=== PATIENT | female | born 1980 | race Caucasian/White ===

== ENCOUNTER 2016-09-14 15:09 | Emergency (ER) | payer OTHER ==
[2016-09-14 15:34] VITALS: BP 122/114; TEMP 98.2; O2SAT 98
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
== END 2016-09-14 16:42 | disposition home or self-care (01) ==
LOC: ER 15:09
DX: S20.219A Contusion of unspecified front wall of thorax, initial encounter (principal); S40.022A Contusion of left upper arm, initial encounter; V53.5XXA Driver of pick-up truck or van injured in collision with car, pick-up truck or van in traffic accident, initial encounter; Y92.410 Unspecified street and highway as the place of occurrence of the external cause

== ENCOUNTER 2016-10-10 22:46 | Emergency (ER) | payer OTHER ==
[2016-10-10 23:11] VITALS: TEMP 99.4
[2016-10-10] MEDS ORDERED: LORazepam 0.5 MG TAB PO ONE (23:42)
[2016-10-10] MEDS ORDERED: LIDOCAINE VIS-MYLANTA 30 ML UD PO ONE (23:42)
--- NOTE | 2016-10-10 23:53 | RAD ---
EXAM DESCRIPTION: Chest,1 View CLINICAL HISTORY: palpitations COMPARISON: April 27, 2013 FINDINGS: Cardiac silhouette is within normal limits. EKG leads project over the chest. There is no focal parenchymal or pleural disease. There is no acute osseous process visualized. IMPRESSION: No evidence of acute cardiopulmonary disease. Electronically signed by: Harjit Butcher MD 10/10/2016 11:53 PM CDT
--- NOTE | 2016-10-11 01:00 | ED.PDOC ---
History of Present Illness - General Chief Complaint: Cardiovascular Problem Stated Complaint: shortness of breath, tingling arm, chest pain Time Seen by Provider: 10/10/16 23:12 Source: patient Exam Limitations: no limitations - History of Present Illness Initial Comments: Patient presents with mild chest pain and palpitations for one month. She is worried about "heart" problems. She denies shortness of breath at this time but says she gets it sometimes. No cardiac history. No hx of GERD. No other complaints. Timing/Duration: other - one month Severity: mild Improving Factors: nothing Worsening Factors: nothing Allergies/Adverse Reactions: Allergies NO KNOWN ALLERGY Allergy (Verified 09/14/16 15:34) Home Medications: Ambulatory Orders NK [NK] 09/14/16 Review of Systems - Review of Systems Constitutional: States: no symptoms reported EENTM: States: no symptoms reported Respiratory: States: see HPI Cardiology: States: see HPI Gastrointestinal/Abdominal: States: no symptoms reported Genitourinary: States: no symptoms reported Musculoskeletal: States: no symptoms reported Skin: States: no symptoms reported Neurological: States: no symptoms reported Endocrine: States: no symptoms reported Hematologic/Lymphatic: States: no symptoms reported Past Medical History (General) - Patient Medical History Hx Seizures: No Hx Stroke: No Hx Dementia: No Hx Asthma: No Hx of COPD: No Hx Cardiac Disorders: No Hx Congestive Heart Failure: No Hx Pacemaker: No Hx Hypertension: No Hx Thyroid Disease: No Hx Diabetes: No Hx Gastroesophageal Reflux: No Hx Renal Disease: No Hx Cancer: No Hx of HIV: No Hx Hepatitis C: No Hx MRSA: No - Vaccination History Hx Tetanus, Diphtheria Vaccination: No Hx Influenza Vaccination: No Hx Pneumococcal Vaccination: No - Social History Hx Tobacco Use: Yes Hx Chewing Tobacco Use: No Hx Alcohol Use: No Hx Substance Use: No Hx Substance Use Treatment: No Hx Depression: No Hx Physical Abuse: No Hx Emotional Abuse: No Hx Suspected Abuse: No - Female History Patient : No Family Medical History - Family History Mother Family History: Unknown Physical Exam - Physical Exam General Appearance: Alert Ears, Nose, Throat: normal ENT inspection Neck: non-tender, full range of motion, supple Respiratory: lungs clear Cardiovascular/Chest: normal peripheral pulses, regular rate, rhythm Gastrointestinal/Abdominal: normal bowel sounds, non tender, soft Back Exam: normal inspection, no CVA tenderness Extremity: normal inspection Skin Exam: normal color Lymphatic: no adenopathy Progress - Progress Progress: 10/11/16 01:00 Cardiac enzymes negative. Normal CXR. EKG showed NSR with no ST changes nor T wave inversion. No LBBB. Patient's sx improved after a GI cocktail. She was given ativan 1 mg po to help with her associate anxiety. Laboratory Tests 10/10/16 10/10/16 10/10/16 23:23 23:23 23:23 WBC 9.6 RBC 4.79 Hgb 14.4 Hct 41.0 MCV 85.7 MCH 30.0 MCHC 35.0 RDW 13.7 Plt Count 212 MPV 8.3 Absolute Neuts (auto) 5.70 Absolute Lymphs (auto) 3.00 Absolute Monos (auto) 0.60 Absolute Eos (auto) 0.20 Absolute Basos (auto) 0.00 Neutrophils % 59.4 Lymphocytes % 31.3 Monocytes % 6.4 Eosinophils % 2.5 Basophils % 0.4 D-Dimer, Quantitative < 230 Sodium 139 Potassium 3.6 Chloride 107 Carbon Dioxide 24 Anion Gap 11.6 L BUN 15 Creatinine 0.75 BUN/Creatinine Ratio 20.0 Random Glucose 108 H Serum Osmolality 278.9 Calcium 9.3 Total Bilirubin 0.8 AST 20 ALT 19 Alkaline Phosphatase 71 Creatine Kinase 58 CK-MB (CK-2) 1.2 CK-MB (CK-2) % Not Reportable Troponin I < 0.02 Serum Total Protein 7.5 Albumin 4.2 Globulin 3.3 Albumin/Globulin Ratio 1.3 Departure - Departure Clinical Impression: Anxiety Disposition: Discharge to Home or Self Care Condition: Good Departure Forms: ED Discharge - Pt. Copy, Patient Portal Self Enrollment Diet: resume usual diet Activity: increase activity as tolerated Referrals: Juan Menon MD [Primary Care Provider] - 1-2 Weeks Home Medications: Ambulatory Orders NK [NK] 09/14/16 Additional Instructions: Follow up with your primary care physician next week. You may want to try Prilosec over the counter as directed on the box until you can see your physician.
[2016-10-11 01:24] VITALS: BP 133/74; O2SAT 97
== END 2016-10-11 01:30 | disposition home or self-care (01) ==
LOC: ER 22:46
DX: F41.9 Anxiety disorder, unspecified (principal); Z87.891 Personal history of nicotine dependence

== ENCOUNTER → 2016-10-22 | Outpatient (CLI) | payer OTHER | END | disposition home or self-care (01) | LOC: GMAM 17:38 | PROVIDERS: ATTEND Family Medicine | DX: R73.9 Hyperglycemia, unspecified (principal) ==

== ENCOUNTER → 2017-06-19 | Outpatient (CLI) | payer OTHER | LOC: GMA 20:44 | PROVIDERS: ATTEND Nurse Practitioner Family | DX: N30.00 Acute cystitis without hematuria (principal) ==

== ENCOUNTER 2017-07-11 22:11 | Observation (INO) | payer OTHER ==
--- NOTE | 2017-07-11 23:05 | ED.PDOC ---
History of Present Illness - General Chief Complaint: Fever Stated Complaint: Fever Time Seen by Provider: 07/11/17 23:04 Source: patient Exam Limitations: no limitations - History of Present Illness Initial Comments: Meghana Sue 37 y/o female stated that she had worsening bilateral flank pain this am;no n/v/pain with urination,no diarrhea ,no constipation,no blood in urine but had history of kidney stones in the past.Had developed fever tonight and decided to come to ER.Denies cough ,nasal congestion. Timing/Duration: 24 hours Severity: moderate Improving Factors: nothing Worsening Factors: nothing Associated Symptoms: denies symptoms Allergies/Adverse Reactions: Allergies NO KNOWN ALLERGY Allergy (Verified 07/11/17 22:53) Home Medications: Ambulatory Orders NK [NK] 09/14/16 Review of Systems - Review of Systems Constitutional: States: see HPI, fever EENTM: States: no symptoms reported Respiratory: States: no symptoms reported Cardiology: States: no symptoms reported Gastrointestinal/Abdominal: States: no symptoms reported Genitourinary: States: see HPI, dysuria Musculoskeletal: States: no symptoms reported Skin: States: no symptoms reported Neurological: States: no symptoms reported Past Medical History (General) - Patient Medical History Hx Seizures: No Hx Stroke: No Hx Dementia: No Hx Asthma: No Hx of COPD: No Hx Cardiac Disorders: No Hx Congestive Heart Failure: No Hx Pacemaker: No Hx Hypertension: No Hx Thyroid Disease: No Hx Diabetes: No Hx Gastroesophageal Reflux: No Hx Renal Disease: No Hx Cancer: No Hx of HIV: No Hx Hepatitis C: No Hx MRSA: No Surgical History: cholecystectomy, other - Vaccination History Hx Tetanus, Diphtheria Vaccination: Yes Hx Influenza Vaccination: No Hx Pneumococcal Vaccination: No Immunizations Up to Date: No - Patient did not receive flu vaccine - Social History Hx Tobacco Use: No Hx Chewing Tobacco Use: No Hx Alcohol Use: No Hx Substance Use: No Hx Substance Use Treatment: No Hx Depression: No Feels Threatened In Home Enviroment: No Feels Threatened In a Relationship: No Hx Physical Abuse: No Hx Emotional Abuse: No Hx Suspected Abuse: No - Female History Patient is a Female of Child Bearing Age (10 -59 yrs old): Yes Hx Last Menstrual Period: 06/25/17 Patient : No Family Medical History - Family History Mother Family History: Unknown Physical Exam - Physical Exam General Appearance: Alert, Comfortable Eye Exam: bilateral normal Ears, Nose, Throat: hearing grossly normal, normal ENT inspection, normal pharynx Neck: non-tender, full range of motion, supple Respiratory: lungs clear, normal breath sounds, no respiratory distress Cardiovascular/Chest: normal peripheral pulses, regular rate, rhythm, no murmur Peripheral Pulses: radial,right: 2+, radial,left: 2+ Gastrointestinal/Abdominal: normal bowel sounds, non tender, soft, no organomegaly Back Exam: no vertebral tenderness, CVA tenderness (R), CVA tenderness (L) Extremity: no pedal edema, no calf tenderness Neurologic: alert, normal mood/affect Skin Exam: normal color, warm/dry Progress - Progress Progress: 07/12/17 02:49 Vital Signs 07/11/17 07/11/17 22:53 23:01 Temperature 101.8 F H Pulse Rate [ 138 H 138 H Monitor] Respiratory 20 20 Rate Blood Pressure 145/92 [Left Arm] O2 Sat by Pulse 96 Oximetry - Results/Orders Results/Orders: Laboratory Tests 07/11/17 07/11/17 07/11/17 23:00 23:05 23:05 WBC 19.1 H RBC 5.05 Hgb 15.2 Hct 43.8 MCV 86.7 MCH 30.0 MCHC 34.6 RDW 13.3 Plt Count 193 MPV 8.3 Absolute Neuts (auto) 17.20 H Absolute Lymphs (auto) 0.90 L Absolute Monos (auto) 0.90 H Absolute Eos (auto) 0.10 Absolute Basos (auto) 0.00 Neutrophils % 90.2 H Lymphocytes % 4.6 L Monocytes % 4.6 Eosinophils % 0.4 L Basophils % 0.2 Sodium 138 Potassium 3.7 Chloride 106 Carbon Dioxide 20 L Anion Gap 15.7 BUN 9 Creatinine 0.60 BUN/Creatinine Ratio 15.0 Random Glucose 114 H Serum Osmolality 275.2 Lactic Acid Calcium 9.5 Total Bilirubin 2.2 H* AST 20 ALT 27 Alkaline Phosphatase 68 Serum Total Protein 7.8 Albumin 4.4 Globulin 3.4 Albumin/Globulin Ratio 1.3 Lipase Urine Color Yellow Urine Appearance Clear Urine pH 5.5 Ur Specific [place] 1.020 Urine Protein Negative Urine Glucose (UA) Negative Urine Ketones 15 H Urine Blood Moderate H Urine Nitrite Negative Urine Bilirubin Negative Urine Urobilinogen 0.2 Ur Leukocyte Esterase Negative Urine RBC 0-1 Urine WBC 0-1 Ur Epithelial Cells 1-3 Urine Bacteria Rare Urine Mucus Trace 07/11/17 07/11/17 23:05 23:05 WBC RBC Hgb Hct MCV MCH MCHC RDW Plt Count MPV Absolute Neuts (auto) Absolute Lymphs (auto) Absolute Monos (auto) Absolute Eos (auto) Absolute Basos (auto) Neutrophils % Lymphocytes % Monocytes % Eosinophils % Basophils % Sodium Potassium Chloride Carbon Dioxide Anion Gap BUN Creatinine BUN/Creatinine Ratio Random Glucose Serum Osmolality Lactic Acid 1.2 Calcium Total Bilirubin AST ALT Alkaline Phosphatase Serum Total Protein Albumin Globulin Albumin/Globulin Ratio Lipase 20 L Urine Color Urine Appearance Urine pH Ur Specific [place] Urine Protein Urine Glucose (UA) Urine Ketones Urine Blood Urine Nitrite Urine Bilirubin Urine Urobilinogen Ur Leukocyte Esterase Urine RBC Urine WBC Ur Epithelial Cells Urine Bacteria Urine Mucus - EKG/XRAY/CT XRAY: chest - no acute abnormalities CT Ordered: Yes - abd pelvis -no acute abnormalities;kidney stone Departure - Departure Clinical Impression: Fever in adult, Bilateral flank pain Time of Disposition: 02:50 Disposition: Admit Patient Condition: Good Departure Forms: Patient Portal Self Enrollment Referrals: Juan Menon MD [Primary Care Provider] - 1-2 Weeks Home Medications: Ambulatory Orders NK [NK] 09/14/16 Decision To Admit - Decistion To Admit Decision to Admit Reason: Admit from ER Decision to Admit Date: 07/12/17 - D/W Patricia GARCIA/Hospitalist Decision to Admit Time: 02:51
[2017-07-11] MEDS ORDERED: LACTATED RINGERS 1,000 ML IVS ONE (23:06)
[2017-07-12] MEDS ORDERED: MORPHINE SULFATE INJ 10 MG/ML VIAL IV ONE (00:42)
[2017-07-12] MEDS ORDERED: PROMETHAZINE HCL INJ 25 MG/ML VIAL IM ONE (00:43)
[2017-07-12] MEDS ORDERED: levoFLOXacin 500MG IV 500 MG in PREMIX BAG 1 BAG IVPB ONE (00:50)
[2017-07-12] MEDS ORDERED: levoFLOXacin 500MG IV 100 ML IVPB ONE (00:58)
--- NOTE | 2017-07-12 01:49 | RAD ---
EXAM: Two view chest. INDICATION: Fever. COMPARISON: Chest x-ray: 10/10/2016. FINDINGS: Cardiac silhouette: Unremarkable. Cecilia: Unremarkable. Lobar consolidation: None. Pleural effusion: None. Pneumothorax: None. Other: None. Bones: Unremarkable. Other: None. IMPRESSION: 1. No acute cardiopulmonary process. Electronically signed by: Yobany Nathan MD 07/12/2017 1:48 AM [facility] Workstation: [id number]
--- NOTE | 2017-07-12 02:08 | CT ---
Procedure: CT ABDOMEN PELVIS WITHOUT IV CONTRAST Exam Date: 07/12/2017 Ordering Provider: Keven Fox Clinical Indication: Right-sided abdominal pain Comparison: 01/13/2016 TECHNIQUE: 5 mm images were taken through the abdomen and pelvis without the administration of nonionic intravenous contrast material. Oral contrast was not administered. Coronal and sagittal reformatted images were generated. This exam was performed according to our departmental dose optimization program which includes use of automated exposure control, adjustment of the mA and/or kV according to patient size and/or use of iterative reconstruction technique. FINDINGS: Lower chest: Nonacute Abdomen: Liver and biliary system: Hepatomegaly. Hepatic steatosis. Prior cholecystectomy. Spleen: Unremarkable Pancreas: Unremarkable Adrenal glands: Unremarkable Kidneys: Punctate stones in the left kidney. No hydronephrosis in either kidney. Lymph nodes: Shotty nodes with adjacent haziness within the right mesentery. No lymphadenopathy by size criteria. Retroperitoneum, abdominal wall, peritoneal cavity: No ascites. No free intraperitoneal air. Vessels: No abdominal aortic aneurysm. Pelvis: Lymph nodes: No lymphadenopathy Bowel: No bowel obstruction. Appendix is within normal limits. No bowel wall thickening. Colonic diverticulosis without evidence of diverticulitis. Bladder: Unremarkable Pelvic organs: Unremarkable Bones: Nonacute IMPRESSION: 1. There are shotty lymph nodes with adjacent haziness within the right mesentery. This is nonspecific but could be related to intraperitoneal focal fat infarction. 2. Hepatomegaly and hepatic steatosis. 3. Left nephrolithiasis without hydronephrosis. 4. Colonic diverticulosis without evidence of diverticulitis. Electronically signed by: Madhu Doyle MD 07/12/2017 2:07 AM [employer] [facility]
--- NOTE | 2017-07-12 03:16 | HP ---
SUPERVISING PHYSICIAN: Juan Menon M.D. CHIEF COMPLAINT: Abdominal and bilateral flank pain. HISTORY OF PRESENT ILLNESS: This is a 37 year-old female patient who presented to the Emergency Room after being fatigued plus having abdominal pain with flank pain for 2 to 3 days. At 6:00 PM on the day prior to her admission, the abdominal pain worsened to the point that she became nauseated. She also had some dysuria and excruciating bilateral flank pain. In the Emergency Room, she had a temperature of 101.8. Her heart rate got up as high as 138, blood pressure was elevated at 161/119 and respiratory rate was 20. She also had a WBC of 19.1 with hemoglobin 15.2 and hematocrit 43.8, neutrophils 90.2. Electrolytes were basically within normal limits except her carbon dioxide was slightly low at 20 with glucose 114. Bilirubin 2.2, lipase 20. Urinalysis was basically within normal limits except she had 15 urine ketones and a moderate amount of urine blood. Chest x-ray was negative for any acute cardiopulmonary processes. Abdomen and pelvic CT showed shotty lymph nodes with adjacent haziness within the right mesentery, nonspecific finding that could be related to intraperitoneal focal fat infarction. Hepatomegaly and hepatic steatosis. Left nephrolithiasis without hydronephrosis. Colonic diverticulosis without evidence of diverticulitis. It is to be noted that the kidneys showed punctate stones in the left kidney. There was no size given. I was called for admission to the hospital. PAST MEDICAL HISTORY: 1. Anxiety with depression although currently not on any medications. 2. Chronic frontal sinusitis. PAST SURGICAL HISTORY: 1. Cholecystectomy. 2. Bilateral tubal ligation. CURRENT MEDICATIONS: None. ALLERGIES: NO KNOWN DRUG ALLERGIES. FAMILY HISTORY: Positive for chronic obstructive pulmonary disease in her mother and her son has type 1 diabetes mellitus diagnosed as a child. SOCIAL HISTORY: She is . She has 3 children. She has a previous history of smoking although she only smoked 1 pack of cigarettes per week for 10 years. She denies any ETOH or illicit drug use. REVIEW OF SYSTEMS: GENERAL: Positive for fever and fatigue. Negative for weight changes. HEENT: Positive for nasal drainage and frontal sinus pressure. Negative for ear pain, vision changes or sore throat. RESPIRATORY: Negative for coughing, wheezing or shortness of breath. CARDIOVASCULAR: Positive for palpitations while in the Emergency Room, but denies any palpitations at this time. Denies chest pain. GASTROINTESTINAL: As per history of present illness. Negative for vomiting or diarrhea. GENITOURINARY: Positive for dysuria. Negative for hematuria or nocturia. MUSCULOSKELETAL: Positive for myalgias and arthralgias. NEUROLOGIC: Negative for dizziness, headache or seizures. PHYSICAL EXAMINATION: VITAL SIGNS: Temperature 98.5, although in the Emergency Room was 101.8. Pulse rate 100 but was as high as 138 in the Emergency Room. Blood pressure is now 127/77, respiratory rate 18, O2 sat is 98% on room air. GENERAL: This is a 37 year-old obese female who is sitting up in her hospital bed. She is in no acute distress. HEENT: Normocephalic and atraumatic. Pupils are equal and reactive. Oropharynx is clear. She is tender to palpation along the frontal sinuses bilaterally. NECK: Supple without mass. RESPIRATORY: Essentially clear to auscultation bilaterally. CHEST: There is equal rise and fall of the chest with inspiration and expiration. CARDIOVASCULAR: Regular to mildly tachycardic rate, regular rhythm. GASTROINTESTINAL: Abdomen is soft, nondistended, non-tender. Bowel sounds are positive. She does have mild bilateral flank tenderness. EXTREMITIES: No cyanosis, clubbing or edema. NEUROLOGIC: She is awake, alert and oriented times three. LABORATORY: Labs and films are as per the History of Present Illness. ASSESSMENT: 1. Febrile illness with no obvious source of infection. 2. Leukocytosis with a left shift. Again, no obvious source of infection, although she does have chronic sinusitis as well as fatty liver disease. Her lactic acid was normal on admission. 3. History of chronic sinusitis. 4. History of anxiety with depression. PLAN: We will place the patient in Observation. Will continue her Levaquin as ordered in the Emergency Room. I have ordered a PPI for ulcer prophylaxis and Lovenox for DVT prophylaxis. I am going to do a CT of her sinuses at this time. Will obtain a complete abdominal sonogram tomorrow. I have ordered routine lab for in the morning as well as I have ordered repeat lab this morning to check her WBCs after fluids. Will continue to monitor the patient closely and follow as needed. Dr. Menon is the collaborating physician available for consultation. #[id number] [facility]
[2017-07-12] MEDS ORDERED: SODIUM CHLORIDE 0.9% (FLUSH) 10 ML SYG IV PRN (03:58)
[2017-07-12] MEDS ORDERED: IV SET AND CAP CHANGE INJ INJ SCH (04:00)
[2017-07-12] MEDS ORDERED: ONDANSETRON INJ 4 MG/2 ML VIAL IV PRN (04:03)
[2017-07-12] MEDS ORDERED: LEVALBUTEROL NEBS 1.25 MG/3 ML VIAL NEB PRN (04:03)
[2017-07-12] MEDS: ACETAMINOPHEN 325 MG TAB PO PRN ×2 (04:10→10:37)
[2017-07-12] MEDS: KCL 20MEQ/D5 1/2NS 1,000 ML IVS PRN ×3 (04:30→22:48)
[2017-07-12] MEDS ORDERED: SODIUM CHLORIDE 0.9% (FLUSH) 10 ML SYG IV SCH (09:00)
[2017-07-12] MEDS: KETOROLAC TROMETHAMINE INJ 30 MG/ML VIAL IV SCH ×2 (12:37→17:43)
--- NOTE | 2017-07-12 12:48 | CT ---
Procedure: CT SINUSES WITHOUT IV CONTRAST Exam Date: 07/12/2017 11:42 AM [employer] Ordering Provider: LAUREN LUGO Clinical Indication: chronic sinusitis; leukocytocis; fever Comparison: None Technique: CT images of the paranasal sinuses were acquired without intravenous contrast. Coronal and sagittal reformations were provided for further characterization. This exam was performed according to our departmental dose-optimization program which includes automated exposure control, adjustment of the mA and/or kV according to patient size and/or use of iterative reconstruction technique. Findings: Maxillary sinuses: There is a 2.5 cm retention cyst or polyp in the right maxillary sinus. No air-fluid levels. Osteomeatal units: Bilaterally Ethmoid air cells: Mild mucosal thickening of a few anterior right ethmoid air cells. Frontal sinuses: Well-aerated Sphenoid sinuses: Well aerated Nasal cavity: Unremarkable Nasal septum: Midline Impression: Relatively well aerated paranasal sinuses. Prominent retention cyst or polyp in the right maxillary sinus. Electronically signed by: Birdie Bill MD 07/12/2017 12:47 PM [employer]
--- NOTE | 2017-07-12 12:51 | RAD ---
Procedure: XR ABDOMEN 2 VIEWS SUPINE ERECT Exam Date: 07/12/2017 11:08 AM [facility] Ordering Provider: LAUREN LUGO Clinical Indication: abdominal pain;fatty liver disease Comparison: None Findings: Bowel gas pattern is non-obstructive. No pneumoperitoneum. There is moderate volume stool burden. No suspicious calcification. Surgical clips in the right upper quadrant of the abdomen. Impression: Nonobstructive bowel gas pattern. Electronically signed by: Birdie Bill MD 07/12/2017 12:50 PM [facility]
[2017-07-13] MEDS ORDERED: levoFLOXacin 500MG IV 500 MG in PREMIX BAG 1 BAG IVPB SCH
[2017-07-13] MEDS ORDERED: levoFLOXacin 750MG IV 750 MG in PREMIX BAG 1 BAG IVPB SCH
[2017-07-13] MEDS: KETOROLAC TROMETHAMINE INJ 30 MG/ML VIAL IV SCH (00:26)
[2017-07-13] MEDS: KCL 20MEQ/D5 1/2NS 1,000 ML IVS PRN (08:31)
--- NOTE | 2017-07-13 10:56 | US ---
EXAM DESCRIPTION: Abdomen,Complete CLINICAL HISTORY: fatty liver; flank pain; leukocytosis COMPARISON: None Available. TECHNIQUE: Complete abdominal ultrasound FINDINGS: Visualized portions of the pancreas are unremarkable. No peripancreatic fluid. Bowel gas obscures some areas. Normal caliber of the aorta. Normal appearance of the inferior vena cava. Liver parenchyma is homogeneous in texture with increased echogenicity consistent with diffuse hepatic steatosis. No liver mass or intrahepatic bile duct dilatation. No liver surface irregularity. Normal appearance of hepatic veins and portal vein. Liver length of 19.3 cm is increased. Gallbladder is surgically absent. Common bile duct is normal in caliber measuring 5.8 mm. The right kidney measures 11.6 in length. Normal renal cortical echogenicity. The renal cortical thickness appears normal. No right renal mass, shadowing stone or cyst. There is no hydronephrosis. Spleen is enlarged measuring 14.3 cm in craniocaudal length. No focal splenic lesion. The left kidney measures 10.4 cm in length. Normal renal cortical echogenicity. The renal cortical thickness appears mildly thinned at the upper pole. No left renal mass, shadowing stone or cyst. There is no hydronephrosis. IMPRESSION: Enlarged liver with diffuse hepatic steatosis. Splenomegaly. Electronically signed by: Shon Hernandez MD 07/13/2017 10:54 AM FOOD SAFETY COORDINATOR
[2017-07-13 11:02] VITALS: BP 121/79; TEMP 97.8; O2SAT 98
--- NOTE | 2017-07-13 13:19 | DS ---
DISCHARGE DIAGNOSIS: 1. Acute febrile illness, showing improvement. 2. Acute leukocytosis with a left shift, showing some improvement. 3. Probable right maxillary sinusitis with associated retention cyst with an acute exacerbation contributing to her febrile illness, showing improvement after treatment. 4. History of anxiety with depression. 5. Moderate obstipation. 6. Abdominal pain, showing some improvement, nonspecific. HISTORY OF PRESENT ILLNESS: This 37-year-old, white female was admitted to the hospital for observation from the Emergency Room because of abdominal pain especially involving the flank for the last 2 to 3 days. She has had some dysuria and worsening pain to the point of becoming nauseated. In the Emergency Room, she was found to have an elevated white count of over 19,000 with elevated granulocytosis. Possibility of an underlying significant infection is noted and required further observation and initiation of treatment course. She had some fairly significant symptomatology, especially in the right maxillary region requiring additional studies as well as initiation of treatment course. She was started on Levaquin parenterally and showed some steady improvement. LABORATORY: White count was 19,100 with 90% neutrophils, decreasing after therapy to 4,900 with only 53% neutrophils. Hemoglobin stabilized at 12.4. Chemistry shows potassium up to 3.9, BUN 10, creatinine 0.62, glucose 116, normal osmolality of 279, lipase 20, lactic acid 1.2, bilirubin elevated at 2.2 with liver enzymes normal. Urinalysis showed some ketonuria and moderate hematuria, otherwise clear. Blood cultures were negative. Influenza A/B negative. Abdominopelvic CT showed diverticulosis, yet no diverticulitis present. Left nephrolithiasis without obstruction was evident. Some lymph nodes were noted in the right mesentery. Moderate fecal stasis evident. Sinus x-ray did show a fairly large inclusion cyst of the right maxillary sinus. Abdominal ultrasound reveals some steatorrhea with infiltration of the liver, otherwise unremarkable. Spleen was slightly enlarged. HOSPITAL COURSE: The patient was feeling much improved on the morning of discharge. Her child has diabetes and the patient very much wishes to continue with outpatient management of her current symptoms so that she will be able to assist with the home care of her children and to assist her in that endeavor. She will have close followup with Dr. Moffett in the clinic. PLAN: The patient is discharged home after initiation of initial therapy having failed outpatient therapy. Her fever is improved. Her white count is improved. Sinusitis will need to have further followup as well. The patient is discharged home to have followup with Dr. Moffett in the next week. May benefit from seeing an ear, nose and throat specialist for her sinus disease. May try nasal saline 4 to 6 times a day to provide moisture in the nose and to promote sinus drainage. Drink plenty of fluids. Observe closely for return of the fever. Return if not improving. Avoid constipation. Continue with the Levaquin for an additional 8 days with next dose to be the evening of discharge. #[id number] MTDD
== END 2017-07-13 11:46 | disposition home or self-care (01) ==
LOC: ER 22:11 → MS 07-12 03:16
PROVIDERS: ADMIT Nurse Practitioner Acute Care; ATTEND Emergency Medicine
DX: D72.829 Elevated white blood cell count, unspecified (principal); R50.9 Fever, unspecified; K59.09 Other constipation; N20.0 Calculus of kidney; F41.9 Anxiety disorder, unspecified; F32.9 Major depressive disorder, single episode, unspecified; J34.1 Cyst and mucocele of nose and nasal sinus; R16.2 Hepatomegaly with splenomegaly, not elsewhere classified; Z87.891 Personal history of nicotine dependence
CPT/HCPCS: 36415 ×4; 70486; 71046; 74019; 74176; 76700; 80048 ×2; 80053; 81001; 83605; 83690; 83735 ×2; 85025 ×3; 87040 ×2; 87804; 94760 ×8; 96361 ×2; 96365; 96366; 96372; 96375 ×2; 96376 ×2; 99284; G0378; J1885 ×3; J1956 ×2; J2270; J2550; J7120

== ENCOUNTER 2020-06-05 16:03 | Emergency (ER) | payer OTHER ==
[2020-06-05 16:29] VITALS: TEMP 98.1
--- NOTE | 2020-06-05 16:29 | ED.PDOC ---
History of Present Illness - General Chief Complaint: Trauma Stated Complaint: bilateral ankle injury/pain Time Seen by Provider: 06/05/20 16:26 Source: patient Exam Limitations: no limitations - History of Present Illness Initial Comments: PATIENT REPORTS SHE FELL OFF A PORCH AND TWISTED BOTH HER ANKLES AND HER LEFT KNEE, C.O PAIN AND INABILITY TO BEAR WEIGHT. PAIN SEEMS MOST PRONOUNCED LATERALLY IN EACH ANKLE AND ABOUT THE SAME, PAIN IN KNEE IS ANTERIOR AND INFERIOR PRIMARILY OVER AN ABRASION THAT SHE HAS THERE. Occurred: just prior to arrival Severity: moderate Method of Injury: fall Improving Factors: nothing Worsening Factors: nothing Loss of Consciousness: no loss of consciousness Associated Symptoms (Fall): denies symptoms Allergies/Adverse Reactions: Allergies NO KNOWN ALLERGY Allergy (Verified 06/05/20 16:30) Home Medications: Ambulatory Orders Ketorolac Tromethamine [Toradol Tabs] 10 mg PO Q4H PRN #15 tab 06/05/20 Review of Systems - Review of Systems Constitutional: States: no symptoms reported EENTM: States: no symptoms reported Respiratory: States: no symptoms reported Gastrointestinal/Abdominal: States: no symptoms reported Genitourinary: States: no symptoms reported Past Medical History (General) - Patient Medical History Hx Seizures: No Hx Stroke: No Hx Dementia: No Hx Asthma: No Hx of COPD: No Hx Cardiac Disorders: No Hx Congestive Heart Failure: No Hx Pacemaker: No Hx Hypertension: No Hx Thyroid Disease: No Hx Diabetes: No Hx Gastroesophageal Reflux: No Hx Renal Disease: No Hx Cancer: No Hx of HIV: No Hx Hepatitis C: No Hx MRSA: No - Vaccination History Hx Tetanus, Diphtheria Vaccination: Yes Hx Influenza Vaccination: No Hx Pneumococcal Vaccination: No - Social History Hx Tobacco Use: No Hx Chewing Tobacco Use: No Hx Alcohol Use: No Hx Substance Use: No Hx Substance Use Treatment: No Hx Depression: No Hx Physical Abuse: No Hx Emotional Abuse: No Hx Suspected Abuse: No - Female History Hx Last Menstrual Period: 06/25/17 Patient : No Family Medical History - Family History Mother Family History: Unknown Living Status: Age at (years of age): 64 Cause of : copd Hx Family;Other: COPD dignosed in 2002 Physical Exam - Physical Exam General Appearance: Alert, Obese, Well Developed, Well Groomed, Well Hydrated, Well Nourished Head Injury: no evidence of injury Neck Exam: non-tender, full range of motion, normal alignment Extremity Exam: tenderness - BILATERALLY INFERIOR TO LATERAL MALLEOLUS. ALSO TO ANTERIOR PROXIMAL LEFT TIBIAL AREA. Departure - Departure Clinical Impression: Ankle fracture, lateral malleolus, closed Qualifiers: Encounter type: initial encounter Fracture alignment: nondisplaced Laterality: left Qualified Code(s): S82.65XA - Nondisplaced fracture of lateral malleolus of left fibula, initial encounter for closed fracture Time of Disposition: 17:18 Disposition: Discharge to Home or Self Care Condition: Good Departure Forms: ED Discharge - Pt. Copy, Patient Portal Self Enrollment Instructions: DI for Trauma, Ankle Fracture Referrals: Juan Menon MD [Primary Care Provider] - 1-2 Weeks Prescriptions: Ketorolac Tromethamine [Toradol Tabs] 10 mg PO Q4H PRN #15 tab PRN Reason: Pain Home Medications: Ambulatory Orders Ketorolac Tromethamine [Toradol Tabs] 10 mg PO Q4H PRN #15 tab 06/05/20
[2020-06-05] MEDS ORDERED: KETOROLAC TROMETHAMINE INJ 30 MG/ML VIAL ONE (16:34)
[2020-06-05] MEDS ORDERED: KETOROLAC TROMETHAMINE INJ 30 MG/ML VIAL IV ONE (16:37)
--- NOTE | 2020-06-05 17:13 | RAD ---
EXAM: Ankle,Left 3 Views (accession [id number]), Ankle,Right 3 Views (accession [id number]) CLINICAL INDICATION: 40-year-old female status post fall. TECHNIQUE: Three views RIGHT ankle were obtained in AP, lateral and oblique projections. Three views LEFT ankle were obtained in AP, lateral and oblique projections. COMPARISON: None. FINDINGS: RIGHT ankle: There is no fracture or dislocation. The joint spaces are preserved. No soft tissue abnormalities are seen. Small plantar heel spur. LEFT ankle: Oblique fracture of the distal lateral malleolus, displaced by approximately one cortex width. The joint spaces are preserved. Soft tissue swelling of the lateral malleolus. Small plantar heel spur. IMPRESSION: 1. Oblique minimally displaced fracture of the distal lateral malleolus with adjacent soft tissue swelling. Electronically signed by: Isaura Maurer MD 06/05/2020 5:12 PM [facility]
--- NOTE | 2020-06-05 17:13 | RAD ---
EXAM: Ankle,Left 3 Views (accession [id number]), Ankle,Right 3 Views (accession [id number]) CLINICAL INDICATION: 40-year-old female status post fall. TECHNIQUE: Three views RIGHT ankle were obtained in AP, lateral and oblique projections. Three views LEFT ankle were obtained in AP, lateral and oblique projections. COMPARISON: None. FINDINGS: RIGHT ankle: There is no fracture or dislocation. The joint spaces are preserved. No soft tissue abnormalities are seen. Small plantar heel spur. LEFT ankle: Oblique fracture of the distal lateral malleolus, displaced by approximately one cortex width. The joint spaces are preserved. Soft tissue swelling of the lateral malleolus. Small plantar heel spur. IMPRESSION: 1. Oblique minimally displaced fracture of the distal lateral malleolus with adjacent soft tissue swelling. Electronically signed by: Isaura Maurer MD 06/05/2020 5:12 PM [facility]
[2020-06-05 18:45] VITALS: BP 146/97; O2SAT 96
== END 2020-06-05 18:00 | disposition home or self-care (01) ==
LOC: ER 16:03
DX: S82.62XA Displaced fracture of lateral malleolus of left fibula, initial encounter for closed fracture (principal); S80.212A Abrasion, left knee, initial encounter; M25.571 Pain in right ankle and joints of right foot; W17.89XA Other fall from one level to another, initial encounter; Y92.9 Unspecified place or not applicable

== ENCOUNTER → 2020-06-14 | Outpatient (CLI) | payer OTHER ==
--- NOTE | 2020-06-14 14:49 | RAD ---
EXAM: Ankle,Left 3 Views INDICATION: 40 years Female, PAIN COMPARISON: None available FINDINGS: 3 views of the left ankle were performed. Acute fracture of the lateral malleolus, minimally displaced. No loni joint dislocation. No destructive osseous lesion. No other fractures are identified. Mild scattered degenerative change noted in the visualized left foot and ankle. Small ankle joint effusion. Soft tissue edema in the ankle or radiopaque foreign body. IMPRESSION: Acute left lateral malleolus fracture. Electronically signed by: Veronica Banks MD 06/14/2020 2:47 PM [facility]
--- NOTE | 2020-06-14 15:36 | RAD ---
EXAM: Ankle,Right 3 Views INDICATION: 40 years Female, pain in ankle and joints COMPARISON: None available FINDINGS: 3 views of the right ankle were performed. 7 mm thin bone fragment is seen lateral to the talus on the AP view only. No other definite fractures are identified. No joint dislocation. No destructive osseous lesion. Extensive soft tissue edema in the ankle, greatest at the lateral aspect of the ankle. Tiny plantar calcaneal spur is noted. No radiopaque foreign body. IMPRESSION: A 7 mm avulsed bone fragment is seen in the lateral right ankle adjacent to the talus, probably originating from the talus. Electronically signed by: Veronica Banks MD 06/14/2020 3:34 PM [facility]
== END ==
LOC: RAD 06-12 23:13
PROVIDERS: ATTEND Orthopaedic Surgery
DX: S92.151A Displaced avulsion fracture (chip fracture) of right talus, initial encounter for closed fracture (principal); S82.65XA Nondisplaced fracture of lateral malleolus of left fibula, initial encounter for closed fracture